=== PATIENT | male | born 1965 | race Caucasian/White ===

== ENCOUNTER 2023-09-05 12:34 | Emergency (ER) | payer OTHER ==
[~2023-09-05] VITALS: Ht 177.8 cm; Wt 102.1 kg
[~2023-09-05 12:34] MED LIST: ALLO100 PO; BP MED; CETI5 PO; CRUTCH USE; Crutch1 EACH MISC; GABA100; GLIM4 PO; HYDACE5 PO; LEVFLO500 PO; LISHYD2025 PO; METF500 PO; Norco 10-325 T1 EACH PO; OXYACE5T PO; OXYC1TAB11 PO; PROC10 PO; RANI150 PO
[2023-09-05 12:55] VITALS: BP 164/122
[2023-09-05] MEDS ORDERED: Tetracaine HCl/Pf 0.5% Opth Soln 4 ml RIGHTEYE ONE (13:00)
== END 2023-09-05 13:27 | disposition home or self-care (01) ==
LOC: ER 12:34
DX: H54.61 Unqualified visual loss, right eye, normal vision left eye (principal); F17.220 Nicotine dependence, chewing tobacco, uncomplicated; I10 Essential (primary) hypertension; E78.00 Pure hypercholesterolemia, unspecified; E11.9 Type 2 diabetes mellitus without complications; Z79.84 Long term (current) use of oral hypoglycemic drugs; Z79.899 Other long term (current) drug therapy
CPT/HCPCS: 99283

== ENCOUNTER 2024-10-19 19:08 | Emergency (ER) | payer OTHER ==
[~2024-10-19] VITALS: Ht 177.8 cm; Wt 102.1 kg
[2024-10-19 19:21] VITALS: BP 180/101
[2024-10-19] MEDS ORDERED: Ketorolac Tromethamine 15mg Vial IV ONE (19:50)
[2024-10-19 20:02] LABS: BASOPHILS ABSOLUTE AUTO 0.07 K/mm3 (0.00-0.23); BASOPHILS PERCENT AUTO 1 % (0-2); EOSINOPHILS ABSOLUTE AUTO 0.34 K/mm3 (0.00-0.68); EOSINOPHILS PERCENT AUTO 3 % (0-6); Hematocrit 40.1 % (37.0-53.0); Hemoglobin 14.2 g/dL (13.5-17.5); IMMATURE GRAN ABSOLUTE AUTO 0.04 K/mm3 (0.00-0.10); IMMATURE GRAN PERCENT AUTO 0 % (0-1); LYMPHOCYTES ABSOLUTE AUTO 3.82 K/mm3 (0.84-5.20); LYMPHOCYTES PERCENT AUTO 36 % (21-46); MONOCYTES ABSOLUTE AUTO 0.72 K/mm3 (0.16-1.47); MONOCYTES PERCENT AUTO 7 % (4-13); Mean Corpuscular HGB 29.8 pg (26.0-34.0); Mean Corpuscular HGB Conc 35.4 g/dL (31.5-36.5); Mean Corpuscular Volume 84 fL (80-100); Mean Platelet Volume 9.9 fL (9.1-12.4); NEUTROPHILS ABSOLUTE AUTO 5.64 K/mm3 (1.96-9.15); NEUTROPHILS PERCENT AUTO 53 % (41-73); Platelet Count 232 K/mm3 (150-400); RDW Coefficient Variation 12.5 % (11.7-14.2); RDW Standard Deviation 37.8 fL (35.1-46.3); Red Blood Cell Count 4.77 M/mm3 (4.30-5.90); White Blood Cell Count 10.63 K/mm3 (4.00-11.30)
[2024-10-19 20:15] LABS: Albumin, Blood 4.6 g/dL (3.4-5.0); Albumin/Globulin Ratio 1.4 (0.8-1.8); Bilirubin, Total 0.5 mg/dL (0.1-1.0); Bun/Creatinine Ratio 22.9 (12.0-20.0); Calcium, Blood 9.1 mg/dL (8.5-10.1); Creatinine, Blood 0.74 mg/dL (0.60-1.20); Globulin, Blood 3.4 g/dL (2.2-4.0); Potassium, Blood 3.8 mmol/L (3.5-5.5)
[2024-10-19] MEDS ORDERED: Morphine Sulfate 4 MG/1 ML Injection IV ONE ×2 (20:15→22:05)
[2024-10-19] MEDS ORDERED: Ondansetron HCl 2 MG / ML 2ML Vial IV ONE (20:15)
[2024-10-19] MEDS ORDERED: AMIT75 PO (20:58)
[2024-10-19] MEDS ORDERED: TYLECOD3 PO (20:59)
[2024-10-19] MEDS ORDERED: Prinivil10 MG PO (21:00)
[2024-10-19] MEDS ORDERED: GABAPENTIN600 MG PO (21:00)
[2024-10-19] MEDS ORDERED: METFORMIN HCL500 M2 PO (21:00)
[2024-10-19] MEDS ORDERED: HYDR1TAB94 PO (21:48)
[2024-10-19] MEDS ORDERED: CEPH500 PO (21:48)
[2024-10-19] MEDS ORDERED: Diphth,Pertuss(Acell),Tet Vac 0.5 ML VIAL IM ONE (21:50)
[2024-10-19] MEDS ORDERED: RX Prepack 6 Tabs Oxycodone 5mg UD ONE (22:55)
== END 2024-10-19 23:15 | disposition home or self-care (01) ==
LOC: ER 19:08
PROVIDERS: Student in an Organized Health Care Education/Training Program
DX: S62.632A Displaced fracture of distal phalanx of right middle finger, initial encounter for closed fracture (principal); S02.2XXA Fracture of nasal bones, initial encounter for closed fracture; V86.95XA Unspecified occupant of 3- or 4- wheeled all-terrain vehicle (ATV) injured in nontraffic accident, initial encounter; Z87.891 Personal history of nicotine dependence; I10 Essential (primary) hypertension; E11.9 Type 2 diabetes mellitus without complications
CPT/HCPCS: 12002; 70450; 71045; 73120; 80053; 83690; 85025; 90471; 90715; 93005; 93010; 96374-59; 99285-25; A9270; J1885; J2270; J2405

== ENCOUNTER 2024-10-26 07:34 | Day surgery (SDC) | payer OTHER ==
[~2024-10-26] VITALS: Ht 177.8 cm; Wt 97.5 kg
[~2024-10-26 07:34] MED LIST changes: +AMIT75 PO; +CEPH500 PO; +GABAPENTIN600 MG PO; +HYDR1TAB94 PO; +METFORMIN HCL500 M2 PO; +Prinivil10 MG PO; +TYLECOD3 PO
[2024-10-26] MEDS ORDERED: CeFAZolin Sodium 2,000 MG VIAL ONE (07:43)
[2024-10-26] MEDS ORDERED: NS 500 ML IV ONE ×2 (07:49→08:57)
[2024-10-26] MEDS ORDERED: propofoL 20 ML IV ONE (08:13)
--- NOTE | 2024-10-26 08:36 | NUR ---
10/26/24 0836 Delia Krueger DIGITAL BLOCK OF RIGHT HAND AT 0834. TOTAL 10ML.
[2024-10-26] MEDS ORDERED: Midazolam HCl 1MG / ML 2ML Vial ONE ×2 (08:46→08:51)
[2024-10-26 09:21] VITALS: BP 106/75
== END 2024-10-26 10:05 | disposition home or self-care (01) ==
LOC: ORSCSDS 07:34
PROVIDERS: Orthopaedic Surgery
PROC: 0X6Q0Z2 Detachment at Right Middle Finger, Mid, Open Approach (ICD-10-PCS; principal; 2024-10-26 09:00)
DX: S68.629A Partial traumatic transphalangeal amputation of unspecified finger, initial encounter (principal); M86.141 Other acute osteomyelitis, right hand; E11.9 Type 2 diabetes mellitus without complications; I10 Essential (primary) hypertension; E66.9 Obesity, unspecified; Z68.30 Body mass index [BMI] 30.0-30.9, adult; Z72.0 Tobacco use; Z79.84 Long term (current) use of oral hypoglycemic drugs; Z79.899 Other long term (current) drug therapy
CPT/HCPCS: 82947; 88305; 88311; J0690; J2250; J2704; J7040

== ENCOUNTER 2025-03-06 08:10 | Day surgery (SDC) | payer OTHER ==
[~2025-03-06] VITALS: Ht 177.8 cm; Wt 95.3 kg
[~2025-03-06 08:10] MED LIST changes: +TRAM50 PO
[2025-03-06] MEDS ORDERED: CeFAZolin Sodium 2,000 MG VIAL ONE (08:20)
[2025-03-06] MEDS ORDERED: Tranexamic Acid 100 ML IV ONE (08:22)
[2025-03-06] MEDS ORDERED: FentaNYL Citrate 50 MCG/ML 2 ML Injection ONE (09:15)
[2025-03-06] MEDS ORDERED: Dexamethasone Sod Phos 10 MG/ML 1ML VIAL ONE (09:18)
[2025-03-06] MEDS ORDERED: Ondansetron HCl 2 MG / ML 2ML Vial ONE (09:18)
[2025-03-06] MEDS ORDERED: Ketorolac Tromethamine 30mg Vial ONE (09:18)
--- NOTE | 2025-03-06 09:19 | NUR ---
03/06/[address], DR DAHL, AND CIRCULATING NURSE ARE ALL AWARE THAT PT HAD NICOTINE (CHEWING TOBACCO TODAY AND WE REMOVED CEDRIC PACK IN PREOP)
[2025-03-06] MEDS ORDERED: Lidocaine 1%-Epineph 1:200000 30 ML SDV INJ ONE (09:55)
--- NOTE | 2025-03-06 10:16 | NUR ---
03/06/25 Chata Moreno REPORT RECEIVED FROM ARELIS AND RN AT BEDSIDE. PT ASLEEP UPON ARRIVAL. OCCASIONAL JAW THRUST NEEDED. VSS. DRESSING CDI. RIGHT PEDAL PULSE PALPABLE. RIGHT TOES WARM, PINK, MOIST. RIGHT TOES CAP REFILL <3 SECONDS. PT AROUSABLE TO TOUCH, BUT NOT VOICE. PT O2 97% ON ROOM AIR.
[2025-03-06 10:47] VITALS: BP 117/83
--- NOTE | 2025-03-06 10:53 | NUR ---
03/06/25 7039 Chata Brennan PARTNER BROUGHT TO BEDSIDE
== END 2025-03-06 11:25 | disposition home or self-care (01) ==
LOC: ORSCSDS 08:10
PROVIDERS: Orthopaedic Surgery Sports Medicine
PROC: 0SBC4ZZ Excision of Right Knee Joint, Percutaneous Endoscopic Approach (ICD-10-PCS; principal; 2025-03-06 09:45)
DX: M23.200 Derangement of unspecified lateral meniscus due to old tear or injury, right knee (principal); M23.203 Derangement of unspecified medial meniscus due to old tear or injury, right knee; S83.521A Sprain of posterior cruciate ligament of right knee, initial encounter; I10 Essential (primary) hypertension; E11.9 Type 2 diabetes mellitus without complications; Z79.84 Long term (current) use of oral hypoglycemic drugs; Z79.899 Other long term (current) drug therapy; M19.90 Unspecified osteoarthritis, unspecified site; F17.220 Nicotine dependence, chewing tobacco, uncomplicated
CPT/HCPCS: 82947; A9270; J0166; J0690; J1100; J1885; J2405; J2704; J3010